=== PATIENT | male | born 1990 | race Caucasian/White ===

== ENCOUNTER 2020-02-10 19:22 | Emergency (ER) | payer MEDICARE, OTHER ==
[~2020-02-10] VITALS: Ht 182.9 cm; Wt 96.1 kg
--- NOTE | 2020-02-10 20:05 | NUR ---
PT CAME IN CO OF CHAIREZ THAT HAS BEEN GOING ON FOR OVER A MONTH. PT STATES HIS DEPTH PERCEPTION SEEMS TO BE OFF WELL. PT DENIES HEAD TRAUMA THAT HE CAN REMEMEBER. PT IS RESTING IN [facility]. CONNECTED TO MONITORING EQUIPMENT
[2020-02-10 20:21] LABS: BASOPHILS # (AUTO) 0.04 x10^3/uL (0-0.1); BASOPHILS % (AUTO) 1 % (0-1); EOSINOPHILS # (AUTO) 0.27 x10^3/uL (0-0.4); EOSINOPHILS % (AUTO) 4 % (1-7); LYMPHOCYTES # (AUTO) 2.31 x10^3/uL (1-3.4); LYMPHOCYTES % (AUTO) 37 % (22-44); MD NO; MEAN CORPUSCULAR HEMOGLOBIN 30.4 pg (27.5-34.5); MEAN CORPUSCULAR HGB CONC 32.8 g/dL (33.2-36.2); MEAN CORPUSCULAR VOLUME 92.4 fL (81-97); MEAN PLATELET VOLUME 7.4 fL (7.4-10.4); MONOCYTES # (AUTO) 0.59 x10^3/uL (0.2-0.8); MONOCYTES % (AUTO) 10 % (2-9); NEUTROPHILS # (AUTO) 2.98 x10^3/uL (1.8-6.8); NEUTROPHILS % (AUTO) 48 % (42-75); PLATELET COUNT 271 x10^3/uL (130-400); RED BLOOD COUNT 4.63 x10^6/uL (4.38-5.82); RED CELL DISTRIBUTION WIDTH 13.5 % (9.4-14.8)
[2020-02-10 20:31] LABS: ANION GAP 7 mmol/L (5-15); CALCIUM 9.1 mg/dL (8.5-10.1); CHLORIDE 111 mmol/L (98-107); CREATININE 1.28 mg/dL (0.7-1.3)
[2020-02-10 20:54] VITALS: BP 132/76
--- NOTE | 2020-02-10 20:54 | NUR ---
PT RESTING IN [facility]. VSS. NAD.
== END 2020-02-10 21:30 | disposition home or self-care (01) ==
LOC: ED 21:09
DX: M54.2 Cervicalgia (principal); R51 Headache; R20.2 Paresthesia of skin
CPT/HCPCS: 36415; 70450; 72125; 80048; 85025; 99285